=== PATIENT | female | born 1975 | race Caucasian/White ===

== ENCOUNTER 2017-02-07 09:23 | Emergency (ER) | payer OTHER ==
[~2017-02-07] VITALS: Ht 167.6 cm; Wt 61.2 kg
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
[2017-02-07] MEDS ORDERED: KETOROLAC TROMETHAMINE INJ 30 MG/ML VIAL ONE (09:46)
[2017-02-07] MEDS ORDERED: HYDROMORPHONE 1 MG/1 ML DISP.SYRIN ONE (09:46)
[2017-02-07] MEDS ORDERED: ONDANSETRON 4 MG TAB.RAPDIS ONE (09:47)
--- NOTE | 2017-02-07 09:55 | NUR ---
PT REC'D MEDICATION ORDERED.
[2017-02-07] MEDS ORDERED: HYDROMORPHONE 1 MG/1 ML DISP.SYRIN IM ONE (10:00)
[2017-02-07] MEDS ORDERED: ONDANSETRON 4 MG TAB.RAPDIS SL ONE (10:00)
[2017-02-07] MEDS ORDERED: KETOROLAC TROMETHAMINE INJ 30 MG/ML VIAL IM ONE (10:00)
[2017-02-07 10:42] VITALS: BP 119/75
== END 2017-02-07 10:38 | disposition home or self-care (01) ==
LOC: ER 09:25
DX: M54.41 Lumbago with sciatica, right side (principal)
CPT/HCPCS: 96372 ×2; 99284; A4606; J1170; J1885; Q0162; Z7610